=== PATIENT | male | born 1950 | race Caucasian/White ===

== ENCOUNTER 2019-01-10 23:38 | Inpatient (IN) | payer MEDICARE, MEDICAID ==
[~2019-01-10] VITALS: Ht 167.6 cm; Wt 90.7 kg
[2019-01-11] VITALS (7 sets, daily range): BP systolic 100–136; BP diastolic 60–75
--- NOTE | 2019-01-11 03:25 | NUR ---
MANAGER SHELL NOTES PATIENT IS A DIRECT ADMIT FROM [facility], TRANSPORTED BY [id number]. ACCOMPANIED BY DAUGHTER BRIAN. PATIENT IS AWAKE ALERT ORIENTED X4, NO SIGNS OF ACUTE DISTRESS. CALM, DENIES ANY PAIN WITH SLIGHT DISCOMFORT AT THIS TIME. ORIENTED TO UNIT, SAFETY MEASURES INITIATED, WITH IV ACCESS ON HIS LEFT AC G#20 AND RIGHT AC G#18 INTACT AND PATENT. CONNECTED TO TELE MONITOR, READS SINUS SANDRA 50s, INITIAL ASSESSMENT DONE. SKIN IS INTACT, NO SKIN ISSUES, NO ABDOMINAL DISTENTION NOTED, NO NAUSEA VOMITING NOTED. SEIZURE PRECAUTION INITIATED, ASPIRATION PRECAUTION EMPHASIZED, CALL LIGHT WITHIN EASY REACH. MD AWARE OF ADMISSION. WILL MONITOR ACCORDINGLY.
[2019-01-11] MEDS ORDERED: ROSI2TAB11 PO (04:13)
[2019-01-11] MEDS ORDERED: DIVA500T2 PO (04:13)
[2019-01-11] MEDS ORDERED: METF-440 PO ×2 (04:13)
[2019-01-11] MEDS ORDERED: NITR0.4T48 SL (04:13)
[2019-01-11] MEDS ORDERED: CARB200T PO (04:13)
--- NOTE | 2019-01-11 05:23 | NUR ---
RN NOTES AWAITING FOR MD ORDERS. PATIENT IS RESTING COMFORTAB;LY AT THIS TIME.
--- NOTE | 2019-01-11 06:18 | NUR ---
RN NOTES ALL NEEDS ATTENDED AND MET ABLE TO REST AND SLEPT AT INTERVALS, DENIES ANY PAIN OR DISCOMFORT AT THIS TIME. TELE MONITOR READS SINUS SANDRA 47 -50s. WILL ENDORSE TO AM NURSE FOR CONTINUITY OF CARE.
[2019-01-11] MEDS ORDERED: HYDROCODONE/APAP 5/325MG 1 EACH TABLET PO PRN (06:30)
[2019-01-11] MEDS ORDERED: ONDANSETRON HCL/PF 4 MG/2 ML VIAL IVP PRN (06:30)
[2019-01-11] MEDS ORDERED: NITROGLYCERIN 0.4 MG/TAB BOTTLE SL PRN (06:30)
[2019-01-11] MEDS ORDERED: ACETAMINOPHEN 325 MG TABLET PO PRN (06:30)
--- NOTE | 2019-01-11 07:16 | NUR ---
PROJECTION WELDING MACHINE OPERATOR OPENING NOTE RECEIVED REPORT FROM NOC SHIFT NURSE. PT ASLEEP IN BED, ON ROOM AIR, SATURATING WELL, NO SIGNS OF RESPIRATORY DISTRESS, RESPIRATIONS EVEN AND UNLABORED. SINUS SANDRA ON TELE MONITOR. IV SITE ON RIGHT AC G18 PATENT, INTACT, WITH SALINE LOCK. IV SITE ON LEFT FOREARM G18 PATENT, INTACT, WITH SALINE LOCK. BED IN LOW POSITION, LOCKED, CALL LIGHT WITHIN REACH.
[2019-01-11 07:26] LABS: BASOPHILS % (AUTO) 0.7 % (0.0-2.0); EOSINOPHILS % (AUTO) 7.4 % (0.0-6.0); HEMATOCRIT 37 % (39-51); HEMOGLOBIN 12.8 g/dL (13.5-17.5); LYMPHOCYTES % (AUTO) 49.7 % (20.0-44.0); MEAN CORPUSCULAR HGB CONC 35 g/dl (31.0-36.0); MEAN CORPUSCULAR VOLUME 98 fL (80-96); MONOCYTES # (AUTO) 0.3 /CMM (0.1-1.30); MONOCYTES % (AUTO) 5.5 % (2.0-12.0); NEUTROPHILS # (AUTO) 2.2 /CMM (1.8-8.9); NEUTROPHILS % (AUTO) 36.7 % (43.0-81.0); PLATELET COUNT (AUTO) 147 /CMM (150-450); RED BLOOD CELL COUNT(AUTO) 3.75 MIL/uL (4.5-6.0); WHITE BLOOD COUNT (AUTO) 6.1 K/uL (4.3-11.0)
[2019-01-11 07:32] LABS: CALCIUM, SERUM 7.9 mg/dL (8.5-10.1); CARBON DIOXIDE 25 mmol/L (21-32); CHLORIDE 108 mmol/L (98-107); CREATININE 0.7 mg/dL (0.6-1.3); GLUCOSE 181 mg/dL (74-106); POTASSIUM 3.7 mmol/L (3.5-5.1); SODIUM SERUM 141 mmol/L (136-145); UREA NITROGEN, BLOOD 10 mg/dL (7-18)
[2019-01-11 07:45] LABS: ALANINE AMINOTRANSFERASE 14 U/L (12-78); ALKALINE PHOSPHATASE 132 U/L (46-116); ASPARTATE AMINOTRANSFERASE 9 U/L (15-37); B-TYPE NATRIURETIC PEPTIDE 34 PG/ML (0-125); BILIRUBIN,TOTAL 0.4 mg/dL (0.2-1.0); CHOLESTEROL 122 mg/dL (<200); HDL CHOLESTEROL 36 mg/dL (40-60); LDL 75 mg/dL (0-99); MAGNESIUM 1.7 mg/dL (1.8-2.4); PHOSPHORUS 3.1 mg/dL (2.5-4.9); TOTAL PROTEIN, SERUM 5.9 g/dL (6.4-8.2); TRIGLYCERIDES 80 mg/dL (30-150)
[2019-01-11] MEDS: PANTOPRAZOLE 40 MG TABLET.DR PO SCH (08:02)
[2019-01-11] MEDS: DIVALPROEX SODIUM 500 MG TABLET.DR PO SCH ×2 (08:02→16:53)
[2019-01-11] MEDS: ASPIRIN 81 MG TAB.CHEW PO SCH (08:02)
[2019-01-11] MEDS: DOCUSATE SODIUM 100 MG CAPSULE PO SCH ×2 (08:02→16:53)
[2019-01-11] MEDS: PIOGLITAZONE HCL 15 MG TABLET PO SCH (08:12)
[2019-01-11] MEDS: BLOOD SUGAR DIAGNOSTIC 1 EACH STRIP IN SCH ×4 (08:54→22:01)
[2019-01-11] MEDS ORDERED: [UNRECOGNIZED DRUG - OTHER] PO SCH (09:00)
[2019-01-11] MEDS ORDERED: METFORMIN 500 MG TABLET PO SCH (09:00)
[2019-01-11] MEDS ORDERED: DEXTROSE 50%-WATER 50 ML DISP.SYRIN IV PRN (09:00)
[2019-01-11] MEDS: INSULIN REGULAR, HUMAN 100 UNIT/ML 3 ML VIAL SQ PRN ×3 (09:20→21:57)
[2019-01-11] MEDS: Magnesium 1GM/D5W 100ML PREMIX 100 ML IV SCH ×2 (09:37→11:11)
[2019-01-11] MEDS ORDERED: LORAZEPAM 1 MG TABLET PO PRN (11:30)
--- NOTE | 2019-01-11 11:35 | NUR ---
PT LEFT UNIT IN STABLE CONDITION FOR CT ANGIO
[2019-01-11] MEDS ORDERED: CT SWABBABLE VALVE TRANS SET 1 EA INFUS.SET MC ONE (11:53)
[2019-01-11] MEDS ORDERED: IV NS 0.9% 250 ML IV ONE (11:53)
[2019-01-11] MEDS ORDERED: IOHEXOL-350 100 ML VIAL IV ONE (11:53)
--- NOTE | 2019-01-11 12:25 | NUR ---
PT RETURNED TO UNIT IN STABLE CONDITION
--- NOTE | 2019-01-11 18:44 | NUR ---
DISTRIBUTION ENGINEER CLOSING NOTE PT ASLEEP IN BED, ON ROOM AIR, SATURATING WELL, NO SIGNS OF RESPIRATORY DISTRESS, RESPIRATIONS EVEN AND UNLABORED. SINUS SANDRA ON TELE MONITOR. IV SITE ON RIGHT AC G20 PATENT, INTACT, WITH SALINE LOCK. IV SITE ON RIGHT FA G18 PATENT, INTACT, WITH SALINE LOCK. IV SITE ON LEFT FOREARM G18 PATENT, INTACT, WITH SALINE LOCK. PROVIDED SAFETY AND COMFORT TO PT THROUGHOUT SHIFT, ALL DUE MEDS GIVEN. FAMILY BY BEDSIDE. BED IN LOW POSITION, LOCKED, CALL LIGHT WITHIN REACH. WILL ENDORSE TO NOC SHIFT NURSE.
--- NOTE | 2019-01-11 20:12 | NUR ---
MS/RN AT 1930, RECEIVED PATIENT IN BED AWAKE, ALERT, ORIENTED, COMFORTABLE, NO C/O PAIN, NO DISTRESS NOTED, CALL LIGHT IN REACH. WILL MONITOR.
[2019-01-11] MEDS ORDERED: ATORVASTATIN 40 MG TABLET PO SCH (22:00)
--- NOTE | 2019-01-11 22:01 | NUR ---
MS/RN ACCU CHECK DONE, BLOOD SUGAR 187, REGULAR INSULIN PER SLIDING SCALE WAS GIVEN, SNACK WAS GIVEN.
--- NOTE | 2019-01-11 23:00 | NUR ---
MS/RN PATIENT IS SLEEPING AT THIS TIME, APPEAR COMFORTABLE, NO DISTRESS NOTED, CALL LIGHT IN REACH. WILL CONTINUE TO MONITOR.
[2019-01-12] VITALS: BP 119/60
[2019-01-12 04:44] VITALS: BP 122/61
[2019-01-12] MEDS: INSULIN REGULAR, HUMAN 100 UNIT/ML 3 ML VIAL SQ PRN ×2 (06:44→12:19)
[2019-01-12] MEDS: BLOOD SUGAR DIAGNOSTIC 1 EACH STRIP IN SCH ×2 (06:45→12:04)
--- NOTE | 2019-01-12 07:01 | NUR ---
MS/RN PATIENT IS AWAKE, COMFORTABLE, NO DISTRESS NOTED, BLOOD SUGAR 172, INSULIN GIVEN PER SLIDING SCALE, ALL NEEDS ATTENDED AT THIS TIME, WILL CONTINUE TO MONITOR.
[2019-01-12 07:12] LABS: BASOPHILS % (AUTO) 0.6 % (0.0-2.0); EOSINOPHILS % (AUTO) 6.7 % (0.0-6.0); HEMATOCRIT 39 % (39-51); HEMOGLOBIN 13.7 g/dL (13.5-17.5); LYMPHOCYTES # (AUTO) 1.9 /CMM (0.8-4.8); LYMPHOCYTES % (AUTO) 30.4 % (20.0-44.0); MEAN CORPUSCULAR HGB CONC 35 g/dl (31.0-36.0); MEAN CORPUSCULAR VOLUME 97 fL (80-96); MONOCYTES # (AUTO) 0.3 /CMM (0.1-1.30); MONOCYTES % (AUTO) 4.5 % (2.0-12.0); NEUTROPHILS # (AUTO) 3.6 /CMM (1.8-8.9); NEUTROPHILS % (AUTO) 57.8 % (43.0-81.0); PLATELET COUNT (AUTO) 159 /CMM (150-450); RED BLOOD CELL COUNT(AUTO) 4.02 MIL/uL (4.5-6.0); WHITE BLOOD COUNT (AUTO) 6.2 K/uL (4.3-11.0)
[2019-01-12 07:43] LABS: CALCIUM, SERUM 7.8 mg/dL (8.5-10.1); CREATININE 0.7 mg/dL (0.6-1.3); MAGNESIUM 1.9 mg/dL (1.8-2.4)
[2019-01-12 08:00] VITALS: BP 121/70
--- NOTE | 2019-01-12 08:00 | NUR ---
TERMINAL BLOCK ASSEMBLER AM NOTE PT ASLEEP IN BED, ON ROOM AIR, SATURATING WELL, NO SIGNS OF RESPIRATORY DISTRESS, RESPIRATIONS EVEN AND UNLABORED. SINUS SANDRA ON TELE MONITOR HR 54. IV SITE ON RIGHT AC G20, LT AC AND RFA PATENT, INTACT, WITH SALINE LOCK,INTACT. PROVIDED SAFETY AND COMFORT .ALL AM MEDS GIVEN. BED IN LOW POSITION, LOCKED, CALL LIGHT WITHIN REACH.
[2019-01-12] MEDS ORDERED: CARBAMAZEPINE 100 MG TAB.CHEW PO SCH (09:00)
[2019-01-12] MEDS ORDERED: NICOTINE PATCH (14MG) 14 MG PATCH.TD24 TD SCH (09:00)
[2019-01-12] MEDS: ASPIRIN 81 MG TAB.CHEW PO SCH (09:18)
[2019-01-12] MEDS: DIVALPROEX SODIUM 500 MG TABLET.DR PO SCH (09:18)
[2019-01-12] MEDS: DOCUSATE SODIUM 100 MG CAPSULE PO SCH (09:18)
[2019-01-12] MEDS: PANTOPRAZOLE 40 MG TABLET.DR PO SCH (09:18)
[2019-01-12] MEDS: PIOGLITAZONE HCL 15 MG TABLET PO SCH (09:22)
[2019-01-12] MEDS ORDERED: PANT40TA2 PO (09:38)
[2019-01-12] MEDS ORDERED: METF-442 PO (09:38)
[2019-01-12] MEDS ORDERED: ATOR40TA PO (10:51)
[2019-01-12] MEDS ORDERED: ASPI-1169 PO (10:51)
--- NOTE | 2019-01-12 13:15 | NUR ---
DISCHARGED PT HOME WITH STABLE V/S.DENIES ANY CHEST PAIN,DISTRESS OR DISCOMFORT.IV H/L REMOVED TO RT AC,LT AC,RFA WITH NO BLEEDING NOTED.NO S/S OF HYPO/HYPERGLYCEMIA.DISCHARGE INSTRUCTIONS AND PRESCRIPTIONS GIVEN TO THE PT AND INSTRUCTED TO CONTINUE WITH PRESCRIBED MEDS AND FOLLOW UP WITH PRIMARY DOCTOR FOR DIABETIC MGT.
--- NOTE | 2019-01-12 13:16 | NUR ---
DISCHARGED HOME ACCOMPANIED BY HIS FRIEND.
== END 2019-01-12 13:15 | disposition home or self-care (01) | DRG 392 ==
LOC: TELE 01-11 02:15
PROVIDERS: ADMIT Nurse Practitioner Acute Care; ATTEND Nurse Practitioner Acute Care
DX: K21.9 Gastro-esophageal reflux disease without esophagitis (principal); E44.1 Mild protein-calorie malnutrition; D68.59 Other primary thrombophilia; I10 Essential (primary) hypertension; D63.8 Anemia in other chronic diseases classified elsewhere; E83.42 Hypomagnesemia; G40.909 Epilepsy, unspecified, not intractable, without status epilepticus; E78.5 Hyperlipidemia, unspecified; E11.65 Type 2 diabetes mellitus with hyperglycemia; F17.210 Nicotine dependence, cigarettes, uncomplicated; Z68.32 Body mass index [BMI] 32.0-32.9, adult; E66.9 Obesity, unspecified; E03.9 Hypothyroidism, unspecified; I25.10 Atherosclerotic heart disease of native coronary artery without angina pectoris
CPT/HCPCS: 36415; 75574; 80048-TC; 80053-TC; 80061-TC; 82962-TC; 83735-TC; 83880; 84100-TC; 84443-TC; 84484-TC; 85025-TC; 85610-TC; 85730-TC; 87081-TC; 93307-TC; G0378; J1815; J3475; J7050; Q9967